=== PATIENT | male | born 1980 | race Caucasian/White ===

== ENCOUNTER 2017-02-01 17:17 | Emergency (ER) | payer OTHER ==
[~2017-02-01] VITALS: Ht 172.7 cm; Wt 64.6 kg
[2017-02-01 18:12] LABS: HEMATOCRIT 44.5 % (38.0-50.0); MCH 32.5 PG (29.0-34.0); MCHC 33.9 G/DL (30.0-36.0); MCV 95.9 FL (86-99); MEAN PLAT.VOLUME 9.5 uM^3 (9.0-12.4); PLATELET COUNT 229 K/uL (156-360); RBC DIS.WIDTH-CV 13.9 % (11.8-14.6); RBC DIS.WIDTH-SD 48.8 % (39-53); RED BLOOD COUNT 4.64 M/uL (4.00-5.50)
[2017-02-01 18:21] LABS: CHLORIDE 104 mEq/L (99-109); POTASSIUM 3.9 mEq/L (3.7-5.4); SODIUM 136 mEq/L (136-147)
[2017-02-01 18:23] LABS: GLUCOSE 85 mg/dL (70-99)
[2017-02-01 18:24] LABS: ANION GAP 10 MEQ/L (2-14)
[2017-02-01 18:27] LABS: GFR ESTIMATE (CALCULATED) > 59 mL/min/
[2017-02-01 18:28] LABS: UREA NITROGEN (BUN) 7 mg/dL (9-23)
[2017-02-01 18:34] LABS: TROP-I INTERPRETATION NEGATIVE; TROPONIN-I < 0.01 ng/mL (0.0-0.30)
[2017-02-01 18:41] LABS: POINT-OF-CARE METER ID UU13113702
[2017-02-01 19:10] LABS: D-DIMER ELISA < 150.00 ng/mLDDU (<230)
[2017-02-01 19:15] LABS: TOTAL BILIRUBIN 0.6 mg/dL (0.0-1.0)
[2017-02-01 19:16] LABS: ALKALINE PHOSPHATASE 72 IU/L (3-129)
[2017-02-01 19:18] LABS: DIRECT BILIRUBIN 0.3 mg/dL (0.0-0.3)
[2017-02-01 19:19] LABS: LIPASE 19 U/L (1.0-51.0)
[2017-02-01] MEDS ORDERED: PERCOCET 5/31 TABLET PO (21:09)
[2017-02-01] MEDS ORDERED: ZOFRAN ODT4 MG PO (21:09)
[2017-02-01 21:43] VITALS: BP 132/97
== END 2017-02-01 22:01 | disposition home or self-care (01) ==
LOC: EME 17:17
PROVIDERS: Physician Assistant
DX: R10.30 Lower abdominal pain, unspecified (principal); R55 Syncope and collapse; R11.2 Nausea with vomiting, unspecified; R07.9 Chest pain, unspecified
CPT/HCPCS: 71020; 74177; 80048; 80076; 82948; 83690; 84484; 85027; 85379; 93005; 99281; 99285; J2270; J2405; J3010; J7030

== ENCOUNTER 2017-02-07 21:27 | Emergency (ER) | payer OTHER ==
[~2017-02-07] VITALS: Ht 172.7 cm; Wt 77.2 kg
[~2017-02-07 21:27] MED LIST: PERCOCET 5/31 TABLET PO; ZOFRAN ODT4 MG PO
[2017-02-07 22:02] LABS: HEMATOCRIT 47.2 % (38.0-50.0); MCHC 32.6 G/DL (30.0-36.0); MCV 97.9 FL (86-99); MEAN PLAT.VOLUME 9.6 uM^3 (9.0-12.4); PLATELET COUNT 253 K/uL (156-360); RBC DIS.WIDTH-CV 14.2 % (11.8-14.6); RBC DIS.WIDTH-SD 51.5 % (39-53); RED BLOOD COUNT 4.82 M/uL (4.00-5.50); WHITE BLOOD COUNT 8.6 K/uL (4.1-10.2)
[2017-02-07 22:31] LABS: ANION GAP 9 MEQ/L (2-14); CHLORIDE 104 MEQ/L (99-109); POTASSIUM 4.4 MEQ/L (3.7-5.4); SAMPLE HEMOLYSIS CHECK 0; SAMPLE ICTERIC CHECK 0; SAMPLE LIPEMIA CHECK 0; SODIUM 137 MEQ/L (136-147); TOTAL BILIRUBIN 0.3 MG/DL (0.0-1.0)
[2017-02-07 22:36] LABS: ALKALINE PHOSPHATASE 64 IU/L (3-129); GFR ESTIMATE (CALCULATED) > 59 mL/min/; GLUCOSE 82 mg/dL (70-99); UREA NITROGEN (BUN) 10 mg/dL (9-23)
[2017-02-08 00:25] LABS: LIPASE 27 U/L (1.0-51.0)
[2017-02-08 00:26] LABS: ADD MIUA? YES; BILIRUBIN NEGATIVE; BLOOD SMALL; COLOR YELLOW ((YELLOW)); GLUCOSE (STRIP) NEGATIVE; KETONES 5; LEUKOCYTES NEGATIVE; NITRITE NEGATIVE; PROTEIN (STRIP) NEGATIVE; SPECIFIC GRAVITY 1.011 (1.000-1.030); UROBILINOGEN 0.2 MG/DL (0.2-1.0)
[2017-02-08 00:29] LABS: BACTERIA NONE SEEN /HPF; EPITHELIAL CELLS RARE /HPF; MUCUS TRACE /LPF; RED BLOOD CELLS 0-5 /HPF (0-5); UCUL ADDED? NO; WHITE BLOOD CELLS 0-5 /HPF (0-5)
[2017-02-08] MEDS ORDERED: ZOFRAN4 MG PO (01:37)
[2017-02-08 02:04] VITALS: BP 123/90
== END 2017-02-08 02:04 | disposition home or self-care (01) ==
LOC: EME 21:27
DX: R10.9 Unspecified abdominal pain (principal); K92.0 Hematemesis
CPT/HCPCS: 80053; 81003; 83690; 85027; 99281; 99284

== ENCOUNTER 2017-03-21 16:02 | Emergency (ER) | payer SELFPAY ==
[~2017-03-21] VITALS: Ht 172.7 cm; Wt 79.9 kg
[~2017-03-21 16:02] MED LIST changes: +BENTYL20 MG PO; +FLOVENT DISKUS1 DIS1 IH; +OMEPRAZOLE20 MG PO; +VENTOLIN HFA18 GM IH; +ZOFRAN4 MG PO
[2017-03-21 16:58] LABS: BASOPHIL COUNT 0.1 K/uL (0-0.1); EOSINOPHIL (%) 2.5 % (0-5); EOSINOPHIL COUNT 0.2 K/uL (0-0.3); IMMATURE GRANULOCYTE (%) 0.3 % (0.0-0.7); INSTRUMENT ABS NEUTROPHIL CT 5.2 K/uL; LYMPHOCYTE COUNT 2.4 K/uL (1.0-2.8); MCH 32.6 PG (29.0-34.0); MCHC 34.1 G/DL (30.0-36.0); MCV 95.7 FL (86-99); MEAN PLAT.VOLUME 9.6 uM^3 (9.0-12.4); MONOCYTE (%) 9.4 % (3-12); MONOCYTE COUNT 0.8 K/uL (0-0.8); NEUTROPHIL (%) 59.5 % (45-76); NEUTROPHIL COUNT 5.2 K/uL (1.8-6.4); PLATELET COUNT 238 K/uL (156-360); RBC DIS.WIDTH-CV 13.3 % (11.8-14.6); WHITE BLOOD COUNT 8.8 K/uL (4.1-10.2)
[2017-03-21 17:03] LABS: INTER. NORMALIZED RATIO 1.1
[2017-03-21 17:06] LABS: PTT 31.3 SEC (25-37)
[2017-03-21 17:08] LABS: CHLORIDE 104 mEq/L (99-109); POTASSIUM 3.7 mEq/L (3.7-5.4); SODIUM 135 mEq/L (136-147)
[2017-03-21 17:09] LABS: AMYLASE 136 IU/L (1-118)
[2017-03-21 17:10] LABS: GLUCOSE 99 mg/dL (70-99)
[2017-03-21 17:12] LABS: ANION GAP 11 MEQ/L (2-14); TOTAL BILIRUBIN 0.2 mg/dL (0.0-1.0)
[2017-03-21 17:14] LABS: ALKALINE PHOSPHATASE 60 IU/L (3-129); GFR ESTIMATE (CALCULATED) > 59 mL/min/
[2017-03-21 17:15] LABS: UREA NITROGEN (BUN) 8 mg/dL (9-23)
[2017-03-21 17:18] LABS: LIPASE 27 U/L (1.0-51.0)
[2017-03-21 18:59] LABS: ADD MIUA? NO; BILIRUBIN NEGATIVE; BLOOD NEGATIVE; COLOR COLORLESS ((YELLOW)); GLUCOSE (STRIP) NEGATIVE; KETONES NEGATIVE; LEUKOCYTES NEGATIVE; NITRITE NEGATIVE; PROTEIN (STRIP) NEGATIVE; SPECIFIC GRAVITY 1.002 (1.000-1.030); UROBILINOGEN 0.2 MG/DL (0.2-1.0)
[2017-03-21] MEDS ORDERED: OMEPRAZOLE40 M1 PO (20:36)
[2017-03-21] MEDS ORDERED: CARAFATE100 MG/ML PO (20:36)
[2017-03-21] MEDS ORDERED: ZOFRAN ODT4 MG PO (20:37)
[2017-03-21 22:23] VITALS: BP 118/95
== END 2017-03-21 22:23 | disposition home or self-care (01) ==
LOC: EME 16:02
PROVIDERS: Physician Assistant
DX: K27.9 Peptic ulcer, site unspecified, unspecified as acute or chronic, without hemorrhage or perforation (principal); K21.0 Gastro-esophageal reflux disease with esophagitis; J45.909 Unspecified asthma, uncomplicated; Z88.0 Allergy status to penicillin
CPT/HCPCS: 71020; 71275; 74177; 80053; 81003; 82150; 83690; 85025; 85610; 85730; 94640; 99281; 99285; J2405; J7030

== ENCOUNTER 2017-03-28 17:09 | Emergency (ER) | payer OTHER ==
[~2017-03-28] VITALS: Ht 172.7 cm; Wt 80.3 kg
[~2017-03-28 17:09] MED LIST changes: +CARAFATE100 MG/ML PO; +OMEPRAZOLE40 M1 PO
[2017-03-28 17:56] LABS: HEMATOCRIT 44.4 % (38.0-50.0); MCH 32.9 PG (29.0-34.0); MCHC 34.5 G/DL (30.0-36.0); MCV 95.5 FL (86-99); PLATELET COUNT 230 K/uL (156-360); RBC DIS.WIDTH-CV 13.7 % (11.8-14.6); RBC DIS.WIDTH-SD 48.2 % (39-53); RED BLOOD COUNT 4.65 M/uL (4.00-5.50); WHITE BLOOD COUNT 8.7 K/uL (4.1-10.2)
[2017-03-28 18:05] LABS: CHLORIDE 108 mEq/L (99-109); POTASSIUM 4.3 mEq/L (3.7-5.4); SODIUM 137 mEq/L (136-147)
[2017-03-28 18:07] LABS: GLUCOSE 104 mg/dL (70-99)
[2017-03-28 18:08] LABS: ANION GAP 12 MEQ/L (2-14)
[2017-03-28 18:11] LABS: GFR ESTIMATE (CALCULATED) > 59 mL/min/
[2017-03-28 18:12] LABS: UREA NITROGEN (BUN) 7 mg/dL (9-23)
[2017-03-28 18:17] LABS: TROP-I INTERPRETATION NEGATIVE; TROPONIN-I < 0.01 ng/mL (0.0-0.30)
[2017-03-28 19:43] LABS: D-DIMER ELISA < 150.00 ng/mLDDU (<230)
[2017-03-28] MEDS ORDERED: ROBITUSSIN AC,T10 ML PO (20:57)
[2017-03-28] MEDS ORDERED: MEDROL DOSEPAK4 MG PO (20:57)
[2017-03-28 21:11] VITALS: BP 133/82
[2017-03-29] MEDS ORDERED: VISTARIL50 MG PO (15:05)
[2017-03-29] MEDS ORDERED: ZOFRAN ODT4 MG PO (16:21)
== END 2017-03-28 21:15 | disposition home or self-care (01) ==
LOC: EME 17:09
DX: J20.9 Acute bronchitis, unspecified (principal); J45.909 Unspecified asthma, uncomplicated; K21.9 Gastro-esophageal reflux disease without esophagitis; Z86.711 Personal history of pulmonary embolism; Z88.0 Allergy status to penicillin
CPT/HCPCS: 71020; 80048; 84484; 85027; 85379; 93005; 94640; 99281; 99284; J7512

== ENCOUNTER 2017-03-29 12:31 | Inpatient (IN) | payer OTHER ==
[~2017-03-29] VITALS: Ht 172.7 cm; Wt 79.3 kg
[~2017-03-29 12:31] MED LIST changes: +MEDROL DOSEPAK4 MG PO; +ROBITUSSIN AC,T10 ML PO
[2017-03-29 13:32] LABS: CARBON DIOXIDE (BICARBONATE) 20.9 MEQ/L (20-31); EOSINOPHIL (%) 0 % (0-5); HEMATOCRIT 44.7 % (38.0-50.0); IMMATURE GRANULOCYTE (%) 0.6 % (0.0-0.7); IMMATURE GRANULOCYTE COUNT 0.1 K/uL; INSTRUMENT ABS NEUTROPHIL CT 10.4 K/uL; LYMPHOCYTE COUNT 1.6 K/uL (1.0-2.8); MCH 32.7 PG (29.0-34.0); MCHC 34.2 G/DL (30.0-36.0); MCV 95.5 FL (86-99); MEAN PLAT.VOLUME 9.8 uM^3 (9.0-12.4); MONOCYTE (%) 5.6 % (3-12); MONOCYTE COUNT 0.7 K/uL (0-0.8); NEUTROPHIL (%) 81.1 % (45-76); NEUTROPHIL COUNT 10.4 K/uL (1.8-6.4); PLATELET COUNT 251 K/uL (156-360); RBC DIS.WIDTH-CV 13.7 % (11.8-14.6); RBC DIS.WIDTH-SD 48.2 % (39-53); RED BLOOD COUNT 4.68 M/uL (4.00-5.50); WHITE BLOOD COUNT 12.9 K/uL (4.1-10.2)
[2017-03-29 13:40] LABS: CHLORIDE 107 mEq/L (99-109); POTASSIUM 3.8 mEq/L (3.7-5.4); SODIUM 142 mEq/L (136-147)
[2017-03-29 13:41] LABS: GLUCOSE 108 mg/dL (70-99)
[2017-03-29 13:43] LABS: ANION GAP 17 MEQ/L (2-14)
[2017-03-29 13:45] LABS: GFR ESTIMATE (CALCULATED) > 59 mL/min/
[2017-03-29 13:46] LABS: UREA NITROGEN (BUN) 8 mg/dL (9-23)
[2017-03-29] MEDS ORDERED: VISTARIL50 MG PO (15:05)
[2017-03-29 15:55] LABS: TROP-I INTERPRETATION NEGATIVE; TROPONIN-I < 0.01 ng/mL (0.0-0.30)
[2017-03-29] MEDS ORDERED: ZOFRAN ODT4 MG PO (16:21)
[2017-03-29 17:44] VITALS: BP 127/85
[2017-03-29 20:22] LABS: TROP-I INTERPRETATION NEGATIVE; TROPONIN-I < 0.01 ng/mL (0.0-0.30)
[2017-03-30 00:10] VITALS: BP 122/83
[2017-03-30 02:11] LABS: TROP-I INTERPRETATION NEGATIVE; TROPONIN-I < 0.01 ng/mL (0.0-0.30)
[2017-03-30 07:40] LABS: ADD MIUA? NO; BILIRUBIN NEGATIVE; BLOOD NEGATIVE; COLOR YELLOW ((YELLOW)); GLUCOSE (STRIP) NEGATIVE; KETONES 5; LEUKOCYTES NEGATIVE; NITRITE NEGATIVE; PROTEIN (STRIP) NEGATIVE; SPECIFIC GRAVITY 1.025 (1.000-1.030); UCUL ADDED? NO; UROBILINOGEN 0.2 MG/DL (0.2-1.0)
[2017-03-30 07:50] VITALS: BP 121/81
[2017-03-30 07:52] LABS: AMPHETAMINES QUANT VALUE 0 NG/ML; BARBITUATES QUANT VALUE 0 NG/ML; BENZODIAZEPINES QUANT VALUE 0 NG/ML; BENZODIAZEPINES, URINE SCREEN Negative (200 ng/mL); MARIJUANA QUANT VALUE 0 NG/ML; PHENCYCLIDINE QUANT VALUE 0 NG/ML
[2017-03-30 08:43] LABS: BASOPHIL COUNT 0.1 K/uL (0-0.1); EOSINOPHIL (%) 0.9 % (0-5); EOSINOPHIL COUNT 0.1 K/uL (0-0.3); HEMATOCRIT 37.1 % (38.0-50.0); IMMATURE GRANULOCYTE (%) 0.5 % (0.0-0.7); INSTRUMENT ABS NEUTROPHIL CT 4.2 K/uL; LYMPHOCYTE COUNT 1.6 K/uL (1.0-2.8); MCH 32.1 PG (29.0-34.0); MCHC 32.9 G/DL (30.0-36.0); MCV 97.6 FL (86-99); MEAN PLAT.VOLUME 10.1 uM^3 (9.0-12.4); MONOCYTE (%) 10.2 % (3-12); MONOCYTE COUNT 0.7 K/uL (0-0.8); NEUTROPHIL (%) 63.3 % (45-76); NEUTROPHIL COUNT 4.2 K/uL (1.8-6.4); PLATELET COUNT 187 K/uL (156-360); RBC DIS.WIDTH-CV 14.1 % (11.8-14.6); RBC DIS.WIDTH-SD 50.7 % (39-53); WHITE BLOOD COUNT 6.6 K/uL (4.1-10.2)
[2017-03-30 08:52] LABS: TROP-I INTERPRETATION NEGATIVE; TROPONIN-I < 0.01 ng/mL (0.0-0.30)
[2017-03-30 08:58] LABS: ALKALINE PHOSPHATASE 43 IU/L (3-129); ANION GAP 7 MEQ/L (2-14); CHLORIDE 109 MEQ/L (99-109); GFR ESTIMATE (CALCULATED) > 59 mL/min/; GLUCOSE 98 mg/dL (70-99); SAMPLE HEMOLYSIS CHECK 0; SAMPLE ICTERIC CHECK 0; SAMPLE LIPEMIA CHECK 0; SODIUM 140 MEQ/L (136-147); TOTAL BILIRUBIN 0.4 MG/DL (0.0-1.0); UREA NITROGEN (BUN) 10 mg/dL (9-23)
[2017-03-30] MEDS ORDERED: MEDROL DOSEPAK4 MG PO (09:15)
[2017-03-30] MEDS ORDERED: ADVAIR 100/501 DISK IH (09:19)
[2017-03-30] MEDS ORDERED: NICODERM CQ1 EAC1 TD (09:20)
== END 2017-03-30 12:45 | disposition home or self-care (01) | DRG 202 ==
LOC: EME 12:31 → 5SOUTH 16:37 → EDOF 16:37 → ENRESERV 16:48 → 5SOUTH 17:37
PROVIDERS: Emergency Medicine; Hospitalist
DX: J20.8 Acute bronchitis due to other specified organisms (principal); R55 Syncope and collapse; E87.2 Acidosis; J45.21 Mild intermittent asthma with (acute) exacerbation; E86.0 Dehydration; K21.0 Gastro-esophageal reflux disease with esophagitis; F17.200 Nicotine dependence, unspecified, uncomplicated; Z86.711 Personal history of pulmonary embolism
CPT/HCPCS: 70450; 71020; 71275; 80048; 80053; 80306 90; 81003; 82803; 83605; 84484; 85025; 85027; 85379; 87040; 87502; 93005; 94640; 94640 76; 94760; 99202; 99281; 99284; 99285; J1650; J1956; J2060; J2185; J3370; J7030; J7050; J7512